=== PATIENT | female | born 1980 | race Two or more races ===

== ENCOUNTER → 2016-11-12 | Outpatient (CLI) | payer MEDICAID ==
[~2016-11-12] MED LIST: LEVOTHROID (SY50 MCG PO; PRENATAL 1+1)(P1 TAB PO
== END | disposition disaster alternative care site (69) ==
LOC: GLAB 08:00
DX: R73.02 Impaired glucose tolerance (oral) (principal)

== ENCOUNTER 2017-01-07 17:07 | Outpatient (CLI) | payer MEDICAID ==
[~2017-01-07] VITALS: Ht 142.2 cm; Wt 77.7 kg
[2017-01-07] MEDS ORDERED: PRENATAL 1+1)(P1 TAB PO (19:02)
[2017-01-07] MEDS ORDERED: LEVOTHROID (SY50 MCG PO (19:30)
[2017-01-07 19:41] LABS: BILIRUBIN URINE NEGATIVE (NEGATIVE); BLOOD URINE NEGATIVE /UL (NEGATIVE); COLOR URINE YELLOW (YELLOW); GLUCOSE URINE NEGATIVE (NEGATIVE); KETONE URINE 5 mg/dL (NEGATIVE); LEUKOCYTES URINE NEGATIVE /UL (NEGATIVE); NITRITE URINE NEGATIVE (NEGATIVE); PH URINE 6.5 (4.0-8.0); PROTEIN URINE NEGATIVE (NEGATIVE); TURBIDITY URINE CLEAR (CLEAR); UROBILINOGEN URINE NORMAL (NORMAL)
== END 2017-01-07 20:45 | disposition disaster alternative care site (69) ==
LOC: GOBS 17:07 → GOBM 17:07 → GOBS 17:08 → GOBM 20:45
PROVIDERS: Obstetrics & Gynecology
DX: O99.89 Other specified diseases and conditions complicating pregnancy, childbirth and the puerperium (principal); M54.9 Dorsalgia, unspecified; Z87.891 Personal history of nicotine dependence; Z3A.36 36 weeks gestation of pregnancy
CPT/HCPCS: G0463